=== PATIENT | female | born 1960 | race African-American/Black ===

== ENCOUNTER 2016-06-14 16:31 | Emergency (ER) | payer MEDICAID ==
[~2016-06-14] VITALS: Ht 152.4 cm; Wt 63.5 kg
[~2016-06-14 16:31] MED LIST: KEPP500 PO; SULF1TAB48 PO
[2016-06-14 17:33] VITALS: BP 141/73
[2016-06-14] MEDS ORDERED: DIVA-18 PO (17:33)
[2016-06-14] MEDS ORDERED: PHEN100C4 PO (17:33)
== END 2016-06-14 21:00 | disposition left against medical advice (07) ==
LOC: ER 20:32
DX: R51 Headache (principal); Z53.21 Procedure and treatment not carried out due to patient leaving prior to being seen by health care provider

== ENCOUNTER 2017-01-30 17:50 | Emergency (ER) | payer MEDICAID ==
[~2017-01-30] VITALS: Ht 160 cm; Wt 73.0 kg
[~2017-01-30 17:50] MED LIST changes: +DIVA-18 PO; +PHEN100C4 PO
[2017-01-30 23:15] LABS: BASOPHILS % 1.1 % (0.0-2.0); EOSINOPHILS % 1.8 % (0.0-5.0); HEMATOCRIT. 35.4 % (36.0-48.0); HEMOGLOBIN. 11.5 g/dL (12.0-16.0); LYMPHOCYTES % 41.3 % (20.0-50.0); MEAN CORPUSCULAR HEMOGLOBIN 26.8 pg (28.0-32.0); MEAN CORPUSCULAR VOLUME 82.7 fL (81.0-99.0); MEAN PLATELET VOLUME 6.8 fl (7.4-10.4); MONOCYTES % 8.7 % (2.0-8.0); NEUTROPHILS % 47.1 % (40.0-76.0); PLATELET 364 x1000/uL (130-400); RED BLOOD CELL COUNT 4.27 mill/uL (4.2-5.4); RED CELL DISTRIBUTION WIDTH 15.9 % (11.6-14.6)
[2017-01-30 23:21] LABS: CHLORIDE 105 mEq/L (98-107)
[2017-01-30 23:24] LABS: CARBON DIOXIDE 31 mEq/L (21-32)
[2017-01-30 23:26] LABS: ETHANOL BLOOD < 10 mg/dL
[2017-01-30 23:34] LABS: CLARITY URINE CLEAR (CLEAR); COLOR URINE YELLOW (YELLOW); KETONES URINE NEGATIVE (NEGATIVE); LEUKOCYTE ESTERASE URINE NEGATIVE (NEGATIVE); NITRITE URINE NEGATIVE (NEGATIVE); OCCULT BLOOD URINE NEGATIVE (NEGATIVE); PH URINE 6.5 (4.5-8.0); PROTEIN URINE NEGATIVE (NEGATIVE); SPECIFIC GRAVITY URINE 1.016 (1.005-1.030); UROBILINOGEN URINE 0.2 E.U./dL (0.2-1.0)
[2017-01-30 23:50] LABS: *AMPHETAMINES SCREEN URINE NEGATIVE (NEGATIVE); *BARBITURATES SCREEN URINE NEGATIVE (NEGATIVE); *BENZODIAZEPINES SCREEN URINE NEGATIVE (NEGATIVE); *COCAINE SCREEN URINE NEGATIVE (NEGATIVE); CANNABINOID URINE SCREEN NEGATIVE (NEGATIVE); METHADONE URINE SCREEN NEGATIVE (NEGATIVE); OPIATES URINE SCREEN NEGATIVE (NEGATIVE); PHENCYCLIDINE URINE SCREEN NEGATIVE (NEGATIVE)
[2017-01-31] MEDS ORDERED: IBUPROFEN 600MG TABLET PO ONE (01:15)
[2017-01-31 02:30] VITALS: BP 136/67
== END 2017-01-31 02:53 | disposition home or self-care (01) ==
LOC: ER 18:18
DX: S69.92XA Unspecified injury of left wrist, hand and finger(s), initial encounter (principal); G44.89 Other headache syndrome; G40.909 Epilepsy, unspecified, not intractable, without status epilepticus; I10 Essential (primary) hypertension; Z88.8 Allergy status to other drugs, medicaments and biological substances; X58.XXXA Exposure to other specified factors, initial encounter; Y93.89 Activity, other specified; Y92.89 Other specified places as the place of occurrence of the external cause; Y99.8 Other external cause status
CPT/HCPCS: 36415; 71010; 73130; 80053; 80185; 80305; 81003; 83690; 85025; 93005; 99285; G0482

== ENCOUNTER 2017-05-16 10:35 | Emergency (ER) | payer MEDICAID ==
[~2017-05-16] VITALS: Ht 154.9 cm; Wt 63.0 kg
[2017-05-16] MEDS ORDERED: LORAZEPAM 1MG TABLET PO ONE (11:45)
[2017-05-16 12:15] LABS: BASOPHILS % 0.7 % (0.0-2.0); EOSINOPHILS % 0.1 % (0.0-5.0); HEMATOCRIT. 39.2 % (36.0-48.0); LYMPHOCYTES % 30.6 % (20.0-50.0); MEAN CORPUSCULAR HEMOGLOBIN 27.2 pg (28.0-32.0); MEAN CORPUSCULAR VOLUME 81.8 fL (81.0-99.0); MONOCYTES % 7.3 % (2.0-8.0); NEUTROPHILS % 61.3 % (40.0-76.0); PLATELET 199 x1000/uL (130-400); RED CELL DISTRIBUTION WIDTH 14.5 % (11.6-14.6)
[2017-05-16 12:21] LABS: CHLORIDE 104 mEq/L (98-107)
[2017-05-16 14:02] LABS: *AMPHETAMINES SCREEN URINE NEGATIVE (NEGATIVE); *BARBITURATES SCREEN URINE NEGATIVE (NEGATIVE); *BENZODIAZEPINES SCREEN URINE NEGATIVE (NEGATIVE); *COCAINE SCREEN URINE NEGATIVE (NEGATIVE); METHADONE URINE SCREEN NEGATIVE (NEGATIVE)
[2017-05-16 14:03] LABS: CANNABINOID URINE SCREEN NEGATIVE (NEGATIVE); OPIATES URINE SCREEN NEGATIVE (NEGATIVE); PHENCYCLIDINE URINE SCREEN NEGATIVE (NEGATIVE)
[2017-05-16 15:38] VITALS: BP 128/78
== END 2017-05-16 16:17 | disposition home or self-care (01) ==
LOC: ER 10:49
DX: R56.9 Unspecified convulsions (principal); R25.1 Tremor, unspecified; F41.9 Anxiety disorder, unspecified; R00.2 Palpitations; Z98.890 Other specified postprocedural states; Z88.8 Allergy status to other drugs, medicaments and biological substances
CPT/HCPCS: 36415; 70450; 71045; 80053; 80165; 80305; 83735; 84484; 85025; 93005; 99285; Z7610

== ENCOUNTER 2017-05-17 10:02 | Emergency (ER) | payer MEDICAID ==
[~2017-05-17] VITALS: Ht 152.4 cm; Wt 66.0 kg
[2017-05-17] MEDS ORDERED: SODIUM CHLORIDE 0.9% 1,000 ML IV ONE (10:45)
[2017-05-17 11:16] LABS: BASOPHILS % 0.5 % (0.0-2.0); EOSINOPHILS % 0.5 % (0.0-5.0); HEMATOCRIT. 38.7 % (36.0-48.0); HEMOGLOBIN. 12.7 g/dL (12.0-16.0); LYMPHOCYTES % 36.3 % (20.0-50.0); MEAN CORPUSCULAR HEMOGLOBIN 26.9 pg (28.0-32.0); MEAN CORPUSCULAR VOLUME 81.9 fL (81.0-99.0); MEAN PLATELET VOLUME 7.6 fl (7.4-10.4); MONOCYTES % 7.4 % (2.0-8.0); NEUTROPHILS % 55.3 % (40.0-76.0); PLATELET 207 x1000/uL (130-400); RED BLOOD CELL COUNT 4.72 mill/uL (4.2-5.4); RED CELL DISTRIBUTION WIDTH 14.5 % (11.6-14.6)
[2017-05-17 11:23] LABS: CHLORIDE 104 mEq/L (98-107); PROTHROMBIN TIME 10.8 sec (9.4-11.6)
[2017-05-17 15:04] VITALS: BP 149/97
== END 2017-05-17 15:21 | disposition home or self-care (01) ==
LOC: ER 10:40
DX: E88.09 Other disorders of plasma-protein metabolism, not elsewhere classified (principal); N95.9 Unspecified menopausal and perimenopausal disorder; R00.0 Tachycardia, unspecified; R51 Headache; F12.10 Cannabis abuse, uncomplicated; Z88.8 Allergy status to other drugs, medicaments and biological substances
CPT/HCPCS: 36415; 71045; 80053; 84484; 85025; 85610; 93005; 96360; 96361; 99285; J7030; Z7610

== ENCOUNTER 2017-05-21 16:48 | Emergency (ER) | payer MEDICAID ==
[~2017-05-21] VITALS: Ht 172.7 cm; Wt 81.0 kg
[2017-05-21] MEDS ORDERED: SODIUM CHLORIDE 0.9% 1,000 ML IV ONE (18:02)
[2017-05-21] MEDS ORDERED: LEVETIRACETAM 500MG PREMIX 100 ML IV ONE (19:15)
[2017-05-21] MEDS ORDERED: LEVETIRACETAM 500MG TABLET PO ONE (19:15)
[2017-05-21 19:24] LABS: BASOPHILS % 0.5 % (0.0-2.0); LYMPHOCYTES % 20.5 % (20.0-50.0); MEAN CORPUSCULAR VOLUME 83.3 fL (81.0-99.0); MEAN PLATELET VOLUME 7.7 fl (7.4-10.4); MONOCYTES % 5.5 % (2.0-8.0); NEUTROPHILS % 73.5 % (40.0-76.0); PLATELET 208 x1000/uL (130-400); RED CELL DISTRIBUTION WIDTH 14.4 % (11.6-14.6)
[2017-05-21 19:28] LABS: CHLORIDE 105 mEq/L (98-107)
[2017-05-21 19:30] LABS: ETHANOL BLOOD < 10 mg/dL
[2017-05-21 19:38] LABS: CARBAMAZEPINE < 0.5 ug/mL (4-12)
[2017-05-21] MEDS ORDERED: VALPROATE SODIUM 500 MG in SODIUM CHLORIDE 0.9% 100 ML IV STA (19:45)
[2017-05-21] MEDS ORDERED: DIVALPROEX SODIUM 500MG ER TABLET PO SCH (19:45)
[2017-05-21] MEDS ORDERED: DIVALPROEX SODIUM 500MG ER TABLET PO NR (20:00)
[2017-05-21 20:10] LABS: *AMPHETAMINES SCREEN URINE NEGATIVE (NEGATIVE); *BARBITURATES SCREEN URINE NEGATIVE (NEGATIVE); *BENZODIAZEPINES SCREEN URINE NEGATIVE (NEGATIVE); *COCAINE SCREEN URINE NEGATIVE (NEGATIVE); METHADONE URINE SCREEN NEGATIVE (NEGATIVE)
[2017-05-21 20:11] LABS: CANNABINOID URINE SCREEN NEGATIVE (NEGATIVE); OPIATES URINE SCREEN NEGATIVE (NEGATIVE); PHENCYCLIDINE URINE SCREEN NEGATIVE (NEGATIVE)
[2017-05-21 22:20] VITALS: BP 132/78
== END 2017-05-21 23:25 | disposition home or self-care (01) ==
LOC: ER 17:26
DX: G40.909 Epilepsy, unspecified, not intractable, without status epilepticus (principal); F41.9 Anxiety disorder, unspecified; I10 Essential (primary) hypertension; F12.10 Cannabis abuse, uncomplicated; Z91.14 Patient's other noncompliance with medication regimen; Z98.890 Other specified postprocedural states
CPT/HCPCS: 36415; 80048; 80156; 80165; 80305; 85025; 96361; 96365; 99284; G0482; J1953; J3490; J7030; Z7610; J7050

== ENCOUNTER 2017-08-19 12:13 | Emergency (ER) | payer MEDICAID ==
[~2017-08-19] VITALS: Ht 165.1 cm; Wt 75.0 kg
[2017-08-19 23:09] LABS: CHLORIDE 104 mEq/L (98-107)
[2017-08-19 23:13] LABS: ETHANOL BLOOD < 10 mg/dL
[2017-08-19 23:17] VITALS: BP 162/84
[2017-08-19] MEDS ORDERED: PHENYTOIN SODIUM EXTENDED 100MG CAPSULE PO ONE (23:45)
== END 2017-08-20 00:21 | disposition home or self-care (01) ==
LOC: ER 12:13
DX: R56.9 Unspecified convulsions (principal); R89.2 Abnormal level of other drugs, medicaments and biological substances in specimens from other organs, systems and tissues; Z91.19 Patient's noncompliance with other medical treatment and regimen; F41.9 Anxiety disorder, unspecified; Z88.1 Allergy status to other antibiotic agents
CPT/HCPCS: 36415; 80048; 80165; 80185; 99284; G0482

== ENCOUNTER 2018-09-04 23:15 | Emergency (ER) | payer MEDICAID ==
[~2018-09-04] VITALS: Ht 152.4 cm; Wt 69.0 kg
[2018-09-05] MEDS ORDERED: ACETAMINOPHEN 325MG TABLET PO ONE (03:45)
[2018-09-05 04:00] LABS: BASOPHILS % 0.5 % (0.0-2.0); HEMATOCRIT. 39.3 % (36.0-48.0); HEMOGLOBIN. 12.7 g/dL (12.0-16.0); LYMPHOCYTES % 15.1 % (20.0-50.0); MEAN CORPUSCULAR HEMOGLOBIN 27.1 pg (28.0-32.0); MEAN PLATELET VOLUME 8.4 fl (7.4-10.4); MONOCYTES % 6.1 % (2.0-8.0); NEUTROPHILS % 78.3 % (40.0-76.0); PLATELET 146 x1000/uL (130-400); RED BLOOD CELL COUNT 4.68 mill/uL (4.2-5.4); RED CELL DISTRIBUTION WIDTH 14.8 % (11.6-14.6)
[2018-09-05 04:01] LABS: CHLORIDE 104 mEq/L (98-107)
[2018-09-05 04:03] LABS: INR 1.1; PROTHROMBIN TIME 11.5 sec (9.6-11.0)
[2018-09-05 04:11] LABS: HCG SCREEN NEGATIVE
[2018-09-05] MEDS ORDERED: DIVALPROEX SODIUM 250MG ER TABLET PO ONE (06:15)
[2018-09-05] MEDS ORDERED: PHENYTOIN SODIUM EXTENDED 100MG CAPSULE PO ONE (06:15)
[2018-09-05] MEDS ORDERED: LEVETIRACETAM 500MG TABLET PO ONE (06:15)
[2018-09-05 06:17] LABS: CLARITY URINE CLEAR (CLEAR); COLOR URINE YELLOW (YELLOW); KETONES URINE NEGATIVE (NEGATIVE); LEUKOCYTE ESTERASE URINE 1+ (NEGATIVE); NITRITE URINE NEGATIVE (NEGATIVE); OCCULT BLOOD URINE NEGATIVE (NEGATIVE); PROTEIN URINE NEGATIVE (NEGATIVE); SPECIFIC GRAVITY URINE 1.017 (1.005-1.030); UROBILINOGEN URINE 0.2 E.U./dL (0.2-1.0)
[2018-09-05 09:21] VITALS: BP 101/59
== END 2018-09-05 10:01 | disposition home or self-care (01) ==
LOC: ER 23:15
DX: G40.909 Epilepsy, unspecified, not intractable, without status epilepticus (principal); N39.0 Urinary tract infection, site not specified; Z88.1 Allergy status to other antibiotic agents; Z79.899 Other long term (current) drug therapy
CPT/HCPCS: 36415; 80053; 80185; 81003; 84703; 85025; 85610; 93005; 99284; Z7610

== ENCOUNTER 2018-09-09 11:44 | Emergency (ER) | payer MEDICAID ==
[~2018-09-09] VITALS: Ht 152.4 cm; Wt 68.0 kg
[2018-09-09] MEDS ORDERED: SODIUM CHLORIDE 0.9% 1,000 ML IV ONE (12:02)
[2018-09-09] MEDS ORDERED: MECLIZINE 25MG TABLET PO ONE (12:15)
[2018-09-09 12:25] LABS: BASOPHILS % 0.6 % (0.0-2.0); EOSINOPHILS % 1.2 % (0.0-5.0); HEMATOCRIT. 37.3 % (36.0-48.0); HEMOGLOBIN. 12.1 g/dL (12.0-16.0); LYMPHOCYTES % 30.6 % (20.0-50.0); MEAN CORPUSCULAR HEMOGLOBIN 27.5 pg (28.0-32.0); MEAN CORPUSCULAR VOLUME 84.7 fL (81.0-99.0); MEAN PLATELET VOLUME 7.9 fl (7.4-10.4); MONOCYTES % 6.4 % (2.0-8.0); NEUTROPHILS % 61.2 % (40.0-76.0); PLATELET 200 x1000/uL (130-400); RED CELL DISTRIBUTION WIDTH 14.1 % (11.6-14.6)
[2018-09-09 12:36] LABS: PARTIAL THROMBOPLASTIN TIME 23.3 sec (23.4-31.0)
[2018-09-09 12:38] LABS: CHLORIDE 108 mEq/L (98-107)
[2018-09-09] MEDS ORDERED: LEVETIRACETAM 500MG PREMIX 100 ML IV ONE (14:00)
[2018-09-09] MEDS ORDERED: IBUPROFEN 800MG TABLET PO ONE (14:45)
[2018-09-09 14:51] VITALS: BP 129/69
== END 2018-09-09 14:55 | disposition home or self-care (01) ==
LOC: ER 11:44
DX: R42 Dizziness and giddiness (principal); R00.2 Palpitations; G40.909 Epilepsy, unspecified, not intractable, without status epilepticus; Z88.1 Allergy status to other antibiotic agents; Z98.890 Other specified postprocedural states; Z79.899 Other long term (current) drug therapy
CPT/HCPCS: 36415; 70450; 71045; 80053; 80165; 80185; 83880; 84484; 85025; 85610; 85730; 93005; 96360; 96361; 99284; J7030; J8597

== ENCOUNTER 2019-10-26 09:31 | Emergency (ER) | payer MEDICAID ==
[~2019-10-26] VITALS: Ht 157.5 cm; Wt 80.0 kg
[2019-10-26 09:33] VITALS: BP 134/88
[2019-10-26] MEDS ORDERED: IBUPROFEN 600MG TABLET PO ONE (10:15)
== END 2019-10-26 10:31 | disposition home or self-care (01) ==
LOC: ER 09:31
DX: M79.605 Pain in left leg (principal); M54.5 Low back pain; Z79.899 Other long term (current) drug therapy; Z88.8 Allergy status to other drugs, medicaments and biological substances; Z98.890 Other specified postprocedural states

== ENCOUNTER 2020-10-02 08:03 | Emergency (ER) | payer MEDICAID, OTHER ==
[~2020-10-02] VITALS: Ht 162.6 cm; Wt 70.0 kg
[2020-10-02] MEDS ORDERED: LEVETIRACETAM 500MG PREMIX 100 ML IV ONE (08:45)
[2020-10-02 08:54] LABS: BASOPHILS % 0.9 % (0.0-2.0); EOSINOPHILS % 1.6 % (0.0-5.0); HEMATOCRIT. 40.8 % (36.0-48.0); HEMOGLOBIN. 13.6 g/dL (12.0-16.0); LYMPHOCYTES % 36.6 % (20.0-50.0); MEAN CORPUSCULAR HEMOGLOBIN 27.3 pg (28.0-32.0); MEAN CORPUSCULAR VOLUME 82.1 fL (81.0-99.0); MONOCYTES % 8.3 % (2.0-8.0); NEUTROPHILS % 52.6 % (40.0-76.0); PLATELET 207 x1000/uL (130-400); RED BLOOD CELL COUNT 4.97 mill/uL (4.2-5.4); RED CELL DISTRIBUTION WIDTH 14.6 % (11.6-14.6)
[2020-10-02 09:01] LABS: CHLORIDE 109 mEq/L (98-107)
[2020-10-02 09:14] LABS: PHENOBARBITAL < 2.1 ug/mL (15.0-40.0)
[2020-10-02 09:15] LABS: CARBAMAZEPINE < 0.5 ug/mL (4-12)
[2020-10-02] MEDS ORDERED: SODIUM CHLORIDE 0.9% 1,000 ML IV ONE (12:00)
[2020-10-02 18:07] VITALS: BP 132/64
== END 2020-10-02 18:15 | disposition short-term general hospital (02) ==
LOC: ER 08:14
DX: T42.0X5A Adverse effect of hydantoin derivatives, initial encounter (principal); Y92.89 Other specified places as the place of occurrence of the external cause; E11.9 Type 2 diabetes mellitus without complications; Z79.899 Other long term (current) drug therapy; Z20.822 Contact with and (suspected) exposure to COVID-19
CPT/HCPCS: 36415; 71045; 80053; 80156; 80165; 80184; 80185; 85025; 87426; 93005; 96365; 96366; 99285; J1953; J7030

== ENCOUNTER 2021-08-23 15:08 | Emergency (ER) | payer OTHER ==
[~2021-08-23] VITALS: Ht 167.6 cm; Wt 73.0 kg
[~2021-08-23 15:08] MED LIST changes: +LEVO500T90 MT; -SULF1TAB48 PO
[2021-08-23] MEDS ORDERED: SODIUM CHLORIDE 0.9% 1,000 ML IV ONE (15:45)
[2021-08-23] MEDS ORDERED: DIPHENHYDRAMINE 50MG/ML VIAL IV ONE (15:45)
[2021-08-23] MEDS ORDERED: LEVETIRACETAM 500MG PREMIX 100 ML IV ONE (15:45)
[2021-08-23] MEDS ORDERED: PROCHLORPERAZINE 10MG/2ML VIAL IV PRN (15:45)
[2021-08-23 16:43] LABS: EOSINOPHILS % 0.1 % (0.0-5.0); HEMOGLOBIN. 12.7 g/dL (12.0-16.0); MEAN CORPUSCULAR HEMOGLOBIN 26.6 pg (28.0-32.0); MEAN CORPUSCULAR VOLUME 83.8 fL (81.0-99.0); MEAN PLATELET VOLUME 8.7 fl (7.4-10.4); MONOCYTES % 6.5 % (2.0-8.0); NEUTROPHILS % 73.4 % (40.0-76.0); PLATELET 286 x1000/uL (130-400); RED BLOOD CELL COUNT 4.77 mill/uL (4.2-5.4); RED CELL DISTRIBUTION WIDTH 15.5 % (11.6-14.6)
[2021-08-23 16:46] LABS: CHLORIDE 103 mEq/L (98-107)
[2021-08-23] MEDS ORDERED: LEVOFLOXACIN 750MG PREMIX 150 ML IV ONE (21:30)
[2021-08-23 21:47] VITALS: BP 149/78
[2021-08-23] MEDS ORDERED: LEVOFLOXACIN 500MG TABLET PO NR (22:27)
== END 2021-08-23 23:00 | disposition home or self-care (01) ==
LOC: ER 15:08
DX: R51.9 Headache, unspecified (principal); G40.909 Epilepsy, unspecified, not intractable, without status epilepticus; E11.9 Type 2 diabetes mellitus without complications; I10 Essential (primary) hypertension; G30.9 Alzheimer's disease, unspecified; F02.80 Dementia in other diseases classified elsewhere, unspecified severity, without behavioral disturbance, psychotic disturbance, mood disturbance, and anxiety; Z88.8 Allergy status to other drugs, medicaments and biological substances; Z20.822 Contact with and (suspected) exposure to COVID-19
CPT/HCPCS: 36415; 70450; 71045; 80053; 85025; 87426; 96361; 96365; 99285; C9803; J1200; J1953; J7030

== ENCOUNTER 2024-03-19 10:08 | Emergency (ER) | payer OTHER, MEDICAID ==
[~2024-03-19] VITALS: Ht 152.4 cm; Wt 63.0 kg
[~2024-03-19 10:08] MED LIST changes: +LEVO-65 MT; -LEVO500T90 MT
[2024-03-19 10:13] VITALS: PULSE 88; O2SAT 100
[2024-03-19 10:22] VITALS: BP 140/73; RESP 16; TEMP 36.9; O2SAT 100
[2024-03-19 11:15] VITALS: TEMP 98.4
[2024-03-19] MEDS: ACETAMINOPHEN 325MG TABLET PO ONE (11:15)
[2024-03-19] MEDS ORDERED: IBUP-2028 MT (11:32)
== END 2024-03-19 11:44 | disposition home or self-care (01) ==
LOC: ER 10:08
DX: M25.522 Pain in left elbow (principal); Z79.899 Other long term (current) drug therapy
CPT/HCPCS: 73080; 99283; Z7610; A4565

== ENCOUNTER 2024-04-04 08:58 | Emergency (ER) | payer MEDICAID, OTHER ==
[~2024-04-04] VITALS: Ht 149.9 cm; Wt 65.8 kg
[~2024-04-04 08:58] MED LIST changes: +IBUP-2028 MT
[2024-04-04 09:17] VITALS: BP 156/65; PULSE 77; RESP 16; TEMP 36.8; O2SAT 98
[2024-04-04] MEDS ORDERED: IBUP-2028 PO (10:19)
[2024-04-04] MEDS ORDERED: VALA100044 PO (10:19)
[2024-04-04 10:37] VITALS: TEMP 98.2
[2024-04-04] MEDS: ACETAMINOPHEN 325MG TABLET PO ONE (10:37)
== END 2024-04-04 10:37 | disposition home or self-care (01) ==
LOC: ER 08:58
DX: B00.89 Other herpesviral infection (principal); M25.522 Pain in left elbow; Z79.1 Long term (current) use of non-steroidal anti-inflammatories (NSAID); Z79.624 Long term (current) use of inhibitors of nucleotide synthesis; Z79.899 Other long term (current) drug therapy
CPT/HCPCS: 73070; 99284